=== PATIENT | male | born 1945 | race Caucasian/White ===

== ENCOUNTER 2018-06-23 06:58 | Inpatient (IN) | payer MEDICARE, BC ==
[2018-06-23] VITALS (17 sets, daily range): BP systolic 114–178; BP diastolic 56–80
[~2018-06-23] VITALS: Ht 175.3 cm; Wt 43.9 kg
[~2018-06-23 06:58] MED LIST: ADV50250 INH; ALBU8.5H8 INH; AMLO5TAB4 PO; LACT1CAP26 PO; LEVO500T89 PO; PANT40TA4 PO; PRED10TA23 PO; guaiFENesin/codeine oral syrup PO
[2018-06-23] MEDS ORDERED: normal saline 1000ml 1,000 ML IV ONE (07:25)
[2018-06-23] MEDS ORDERED: normal saline 1000ML IV soln IVB ONE (07:40)
[2018-06-23] MEDS: K, MAG and/or Phos replacement - Verify level? MC SCH (08:00)
[2018-06-23] MEDS ORDERED: thiamine 100mg tablet PO SCH (08:00)
[2018-06-23] MEDS ORDERED: morphine 4 MG/ML inj SYRINge IV PRN (08:00)
[2018-06-23] MEDS ORDERED: folic acid 1mg tablet PO SCH (08:00)
[2018-06-23] MEDS ORDERED: folic acid inj. 2 MG, thiamine inj. 100 MG, MVI, adult No.4 with vit. K 10 ML in dextro... IV SCH ×4 (08:00)
[2018-06-23 08:14] LABS: BASOPHILS % (AUTO) 0.1 % (0-1); EOSINOPHILS % (AUTO) 0 % (0-6); HEMATOCRIT 31.3 % (42.0-52.0); HEMOGLOBIN 10.7 g/dl (14.0-17.9); LYMPHOCYTES # (AUTO) 1.1 X10'3 (1.1-4.8); LYMPHOCYTES % (AUTO) 6.4 % (21-51); MEAN CORPUSCULAR HEMOGLOBIN 32.1 PG (27.0-31.0); MEAN CORPUSCULAR HGB CONC 34.1 % (33.0-36.5); MEAN CORPUSCULAR VOLUME 94.3 FL (78-98); MEAN PLATELET VOLUME 6.8 FL (7.4-10.4); MONOCYTES # (AUTO) 0.8 X10'3 (0-0.9); MONOCYTES % (AUTO) 4.8 % (2-12); NEUTROPHILS # (AUTO) 15.1 X10'3 (1.8-7.7); NEUTROPHILS % (AUTO) 88.7 % (42-75); PLATELET COUNT 607 X10'3 (140-440); RED BLOOD COUNT 3.32 X10'6 (4.70-6.10); RED CELL DISTRIBUTION WIDTH 13.5 % (11.5-14.5)
[2018-06-23 08:16] LABS: PARTIAL THROMBOPLASTIN TIME 27 SECONDS (22-32); PROTHROMBIN TIME 10.8 SECONDS (9.0-12.0)
[2018-06-23 08:31] LABS: ALANINE AMINOTRANSFERASE 22 U/L (12-78); ALBUMIN 1.8 G/DL (3.4-5.0); ALBUMIN/GLOBULIN RATIO 0.6 (1.1-1.5); ALKALINE PHOSPHATASE 259 IU/L (46-116); ANION GAP 6 (8-16); ASPARTATE AMINO TRANSFERASE 16 U/L (10-37); BILIRUBIN,TOTAL 0.4 MG/DL (0.1-1.0); BLOOD UREA NITROGEN 12 MG/DL (7-18); BUN/CREATININE RATIO 12.8 (5.4-32.0); CALCIUM 8.1 MG/DL (8.5-10.1); CHLORIDE 100 MMOL/L (99-107); CREATININE 0.94 MG/DL (0.60-1.10); GLUCOSE 183 MG/DL (70-104); POTASSIUM 3.7 MMOL/L (3.5-5.1); SODIUM 135 MMOL/L (135-145); TOTAL CARBON DIOXIDE 28.6 MMOL/L (24-32); TOTAL PROTEIN 4.7 G/DL (6.4-8.2); eGFR 79 ML/MIN
[2018-06-23] MEDS ORDERED: iohexol 300mg/ml 100ml inj. ONE (09:40)
[2018-06-23] MEDS ORDERED: LIDOcaine 1%/PF 5ML 10 MG/ML VIAL ONE (09:40)
[2018-06-23] MEDS ORDERED: LIDOcaine 1%/PF 5ML 10 MG/ML VIAL SQ ONE (09:45)
[2018-06-23] MEDS ORDERED: midazolam 2 mg/2 ml injection IV PRN (09:45)
[2018-06-23] MEDS ORDERED: fentaNYL/PF 50MCG/1 ML 2ML syringe IV PRN (09:45)
[2018-06-23] MEDS ORDERED: heparin 1,000 UNITS/NS 500ml 500 ML ICATH ONE (09:45)
[2018-06-23] MEDS ORDERED: normal saline 1000ml 1,000 ML IV SCH (09:45)
[2018-06-23] MEDS ORDERED: magnesium 4gm in 100ml NS 100 ML IV PRN (09:50)
[2018-06-23] MEDS ORDERED: magnesium Cl slow-release 64mg tablet PO PRN (09:50)
[2018-06-23] MEDS ORDERED: ondansetron/PF 4mg/2ml inj IV PRN (09:50)
[2018-06-23] MEDS ORDERED: LORazepam 1 MG tablet PO PRN (09:50)
[2018-06-23] MEDS ORDERED: thiamine 100mg/ml 2ml inj. IV ONE (09:50)
[2018-06-23] MEDS ORDERED: sodium phosphate inj. 15 MMOL in dextrose 5%-water 150 ML IV PRN (09:50)
[2018-06-23] MEDS ORDERED: magnesium 1gm/100ml D5W IVPB 100 ML IV PRN (09:50)
[2018-06-23] MEDS ORDERED: Neutra Phos packet PO PRN (09:50)
[2018-06-23] MEDS ORDERED: sodium phosphate inj. 30 MMOL in dextrose 5%-water 250 ML IV PRN (09:50)
[2018-06-23] MEDS ORDERED: acetaminophen 325mg tablet PO PRN ×2 (09:50)
[2018-06-23] MEDS ORDERED: haloperidol 5mg tablet PO PRN (09:50)
[2018-06-23] MEDS ORDERED: dextrose 50%-water 50ml dispensing syringe IV PRN (09:50)
[2018-06-23] MEDS ORDERED: potassium Cl 20 mEq SR tablet PO PRN (09:50)
[2018-06-23] MEDS ORDERED: haloperidol lactate 5mg/ml inj IM PRN (09:50)
[2018-06-23] MEDS ORDERED: fentaNYL/PF 50MCG/1 ML 2ML syringe ONE ×2 (10:04→10:39)
[2018-06-23] MEDS ORDERED: heparin 1,000 UNITS/NS 500ml 500 ML ONE (10:04)
[2018-06-23] MEDS ORDERED: midazolam 2 mg/2 ml injection ONE ×2 (10:04→10:39)
[2018-06-23] MEDS ORDERED: albuterol 2.5 MG/3 ML nebule NEB PRN (10:40)
[2018-06-23] MEDS: normal saline 1000ml 1,000 ML IV SCH ×3 (11:55→23:07)
[2018-06-23] MEDS ORDERED: pneumococcal 23-VAL P-sac vacc 25 mcg/0.5ml vial IMVAC ONE (13:40)
[2018-06-23 13:49] LABS: CLARITY,URINE CLEAR (Clear); COLOR,URINE YELLOW (Yellow); GLUCOSE, URINE NEGATIVE (Neg); KETONES,URINE NEGATIVE (Neg); LEUKOCYTE ESTERASE ,URINE NEGATIVE (Neg); NITRITES, URINE NEGATIVE (Neg); OCCULT BLOOD,URINE NEGATIVE (Neg); PROTEIN,URINE NEGATIVE (Neg)
[2018-06-23 13:56] LABS: UA COLLECTION TYPE VOIDED
[2018-06-23] MEDS: docusate sod 100mg capsule PO SCH (20:00)
[2018-06-23] MEDS: lactobacillus rhamnosus 10,000 MMU CELLS/CAPSULE PO SCH (20:00)
[2018-06-23] MEDS ORDERED: ipratropium/albuterol 3ml nebule NEB PRN (21:25)
[2018-06-23] MEDS: famotidine 20mg tablet PO SCH (21:37)
[2018-06-23] MEDS: HYDROcodone/acetaminophen 10/325mg tab PO PRN (21:44)
[2018-06-24] VITALS (23 sets, daily range): BP systolic 122–180; BP diastolic 56–88
[2018-06-24] MEDS: normal saline 1000ml 1,000 ML IV SCH ×2 (01:15→21:25)
[2018-06-24 03:08] LABS: BASOPHILS # (AUTO) 0.1 X10'3 (0-0.2); BASOPHILS % (AUTO) 0.6 % (0-1); EOSINOPHILS # (AUTO) 0.2 X10'3 (0-0.9); EOSINOPHILS % (AUTO) 1.6 % (0-6); HEMATOCRIT 24.5 % (42.0-52.0); HEMOGLOBIN 8.3 g/dl (14.0-17.9); LYMPHOCYTES # (AUTO) 1.3 X10'3 (1.1-4.8); LYMPHOCYTES % (AUTO) 12.7 % (21-51); MEAN CORPUSCULAR HEMOGLOBIN 31.8 PG (27.0-31.0); MEAN CORPUSCULAR HGB CONC 34.1 % (33.0-36.5); MEAN CORPUSCULAR VOLUME 93.4 FL (78-98); MEAN PLATELET VOLUME 6.6 FL (7.4-10.4); MONOCYTES # (AUTO) 0.8 X10'3 (0-0.9); MONOCYTES % (AUTO) 7.5 % (2-12); NEUTROPHILS # (AUTO) 8.1 X10'3 (1.8-7.7); NEUTROPHILS % (AUTO) 77.6 % (42-75); PLATELET COUNT 471 X10'3 (140-440); RED BLOOD COUNT 2.62 X10'6 (4.70-6.10); RED CELL DISTRIBUTION WIDTH 13.2 % (11.5-14.5); WHITE BLOOD COUNT 10.4 X10'3 (4.5-11.0)
[2018-06-24 03:15] LABS: PARTIAL THROMBOPLASTIN TIME 30 SECONDS (22-32); PROTHROMBIN TIME 10.4 SECONDS (9.0-12.0)
[2018-06-24 03:21] LABS: ALANINE AMINOTRANSFERASE 20 U/L (12-78); ALBUMIN 1.5 G/DL (3.4-5.0); ALBUMIN/GLOBULIN RATIO 0.6 (1.1-1.5); ALKALINE PHOSPHATASE 182 IU/L (46-116); ANION GAP 6 (8-16); ASPARTATE AMINO TRANSFERASE 16 U/L (10-37); BILIRUBIN,TOTAL 0.2 MG/DL (0.1-1.0); BLOOD UREA NITROGEN 12 MG/DL (7-18); BUN/CREATININE RATIO 18.8 (5.4-32.0); CALCIUM 7.5 MG/DL (8.5-10.1); CHLORIDE 101 MMOL/L (99-107); CREATININE 0.64 MG/DL (0.60-1.10); GLUCOSE 103 MG/DL (70-104); MAGNESIUM 1.7 MG/DL (1.5-2.4); PHOSPHORUS 3.5 MG/DL (2.3-4.5); POTASSIUM 3.6 MMOL/L (3.5-5.1); SODIUM 135 MMOL/L (135-145); TOTAL CARBON DIOXIDE 27.8 MMOL/L (24-32); eGFR > 90 ML/MIN
[2018-06-24] MEDS ORDERED: multivitamins, therapeutics tablet PO SCH (08:00)
[2018-06-24] MEDS: K, MAG and/or Phos replacement - Verify level? MC SCH (08:00)
[2018-06-24] MEDS: famotidine 20mg tablet PO SCH (08:02)
[2018-06-24] MEDS: pantoprazole 40mg Tablet.DR PO SCH (08:02)
[2018-06-24] MEDS: docusate sod 100mg capsule PO SCH ×2 (08:02→21:24)
[2018-06-24] MEDS: lactobacillus rhamnosus 10,000 MMU CELLS/CAPSULE PO SCH ×2 (08:02→21:24)
[2018-06-24] MEDS: prednisone 10mg tablet PO SCH (09:24)
[2018-06-24 10:43] LABS: % IRON SATURATION 24 % (11-46); IRON 34 UG/DL (53-167); TOTAL IRON BINDING CAPACITY 140 UG/DL (259-388)
[2018-06-24] MEDS ORDERED: vasopressin inj. 60 UNIT in normal saline 100ml IV soln 97 ML IV SCH (15:00)
[2018-06-25] VITALS (28 sets, daily range): BP systolic 120–221; BP diastolic 30–140
[2018-06-25] MEDS: normal saline 1000ml 1,000 ML IV SCH ×3 (01:47→20:00)
[2018-06-25] MEDS: hydrALAZINE 20mg/ml inj. IV PRN ×3 (02:05→13:02)
[2018-06-25 03:50] LABS: BASOPHILS % (AUTO) 0.2 % (0-1); EOSINOPHILS # (AUTO) 0.2 X10'3 (0-0.9); HEMATOCRIT 27.3 % (42.0-52.0); HEMOGLOBIN 9.3 g/dl (14.0-17.9); LYMPHOCYTES % (AUTO) 7.7 % (21-51); MEAN CORPUSCULAR HEMOGLOBIN 31.6 PG (27.0-31.0); MEAN CORPUSCULAR HGB CONC 33.9 % (33.0-36.5); MEAN CORPUSCULAR VOLUME 93.3 FL (78-98); MEAN PLATELET VOLUME 6.9 FL (7.4-10.4); MONOCYTES # (AUTO) 0.8 X10'3 (0-0.9); MONOCYTES % (AUTO) 6.7 % (2-12); NEUTROPHILS # (AUTO) 10.4 X10'3 (1.8-7.7); NEUTROPHILS % (AUTO) 83.4 % (42-75); PLATELET COUNT 526 X10'3 (140-440); RED BLOOD COUNT 2.93 X10'6 (4.70-6.10); RED CELL DISTRIBUTION WIDTH 13.3 % (11.5-14.5); WHITE BLOOD COUNT 12.4 X10'3 (4.5-11.0)
[2018-06-25 04:03] LABS: PARTIAL THROMBOPLASTIN TIME 26 SECONDS (22-32); PROTHROMBIN TIME 10.1 SECONDS (9.0-12.0)
[2018-06-25 04:15] LABS: ALANINE AMINOTRANSFERASE 19 U/L (12-78); ALBUMIN 1.7 G/DL (3.4-5.0); ALBUMIN/GLOBULIN RATIO 0.6 (1.1-1.5); ALKALINE PHOSPHATASE 195 IU/L (46-116); ANION GAP 7 (8-16); ASPARTATE AMINO TRANSFERASE 17 U/L (10-37); BILIRUBIN,TOTAL 0.3 MG/DL (0.1-1.0); BLOOD UREA NITROGEN 12 MG/DL (7-18); CALCIUM 7.6 MG/DL (8.5-10.1); CHLORIDE 102 MMOL/L (99-107); CREATININE 0.48 MG/DL (0.60-1.10); GLUCOSE 104 MG/DL (70-104); MAGNESIUM 1.7 MG/DL (1.5-2.4); PHOSPHORUS 2.6 MG/DL (2.3-4.5); POTASSIUM 3.7 MMOL/L (3.5-5.1); SODIUM 136 MMOL/L (135-145); TOTAL PROTEIN 4.5 G/DL (6.4-8.2); eGFR > 90 ML/MIN
[2018-06-25] MEDS: pantoprazole 40mg Tablet.DR PO SCH (07:30)
[2018-06-25] MEDS: K, MAG and/or Phos replacement - Verify level? MC SCH (08:00)
[2018-06-25] MEDS: docusate sod 100mg capsule PO SCH ×2 (08:00→20:00)
[2018-06-25] MEDS: folic acid 1mg tablet PO SCH (08:00)
[2018-06-25] MEDS: lactobacillus rhamnosus 10,000 MMU CELLS/CAPSULE PO SCH ×2 (08:00→20:00)
[2018-06-25] MEDS: prednisone 10mg tablet PO SCH (08:00)
[2018-06-25] MEDS: thiamine 100mg tablet PO SCH (08:00)
[2018-06-25] MEDS: multivitamins, therapeutics tablet PO SCH (08:00)
[2018-06-25] MEDS ORDERED: fentaNYL/PF 50MCG/1 ML 2ML syringe ONE (14:22)
[2018-06-25] MEDS ORDERED: MIDAZolam 5mg/5ml vial ONE (14:22)
[2018-06-25] MEDS ORDERED: LIDOcaine Viscous 15ml cup ONE (14:23)
[2018-06-25] MEDS ORDERED: epiNEPHrine 0.1mg/ml 10ml syringe ONE (14:23)
[2018-06-25 14:29] LABS: BASOPHILS % (AUTO) 0.4 % (0-1); EOSINOPHILS % (AUTO) 0 % (0-6); HEMATOCRIT 28.5 % (42.0-52.0); HEMOGLOBIN 9.7 g/dl (14.0-17.9); LYMPHOCYTES # (AUTO) 0.9 X10'3 (1.1-4.8); LYMPHOCYTES % (AUTO) 7.5 % (21-51); MEAN CORPUSCULAR HEMOGLOBIN 31.6 PG (27.0-31.0); MEAN CORPUSCULAR VOLUME 92.8 FL (78-98); MEAN PLATELET VOLUME 6.4 FL (7.4-10.4); MONOCYTES # (AUTO) 0.8 X10'3 (0-0.9); MONOCYTES % (AUTO) 6.8 % (2-12); NEUTROPHILS # (AUTO) 10.6 X10'3 (1.8-7.7); NEUTROPHILS % (AUTO) 85.3 % (42-75); PLATELET COUNT 528 X10'3 (140-440); RED BLOOD COUNT 3.07 X10'6 (4.70-6.10); RED CELL DISTRIBUTION WIDTH 13.2 % (11.5-14.5); WHITE BLOOD COUNT 12.4 X10'3 (4.5-11.0)
[2018-06-25] MEDS: HYDROcodone/acetaminophen 10/325mg tab PO PRN (15:07)
[2018-06-25] MEDS ORDERED: amLODIPine 5mg tablet PO ONE (16:10)
[2018-06-25] MEDS ORDERED: labetalol 20mg/4ml (5mg/ml) syringe IV ONE (16:10)
[2018-06-25] MEDS: morphine 2 MG/ML inj. syringe IV PRN (20:27)
[2018-06-26] VITALS (20 sets, daily range): BP systolic 129–188; BP diastolic 62–92
[2018-06-26] MEDS: morphine 2 MG/ML inj. syringe IV PRN ×2 (01:25→08:59)
[2018-06-26] MEDS: normal saline 1000ml 1,000 ML IV SCH ×2 (04:27→07:40)
[2018-06-26 05:47] LABS: BASOPHILS % (AUTO) 0.3 % (0-1); EOSINOPHILS # (AUTO) 0.1 X10'3 (0-0.9); EOSINOPHILS % (AUTO) 0.6 % (0-6); HEMATOCRIT 26.2 % (42.0-52.0); HEMOGLOBIN 9.3 g/dl (14.0-17.9); LYMPHOCYTES # (AUTO) 1.3 X10'3 (1.1-4.8); LYMPHOCYTES % (AUTO) 9.4 % (21-51); MEAN CORPUSCULAR HEMOGLOBIN 33.3 PG (27.0-31.0); MEAN CORPUSCULAR HGB CONC 35.7 % (33.0-36.5); MEAN CORPUSCULAR VOLUME 93.4 FL (78-98); MONOCYTES # (AUTO) 0.8 X10'3 (0-0.9); MONOCYTES % (AUTO) 5.8 % (2-12); NEUTROPHILS # (AUTO) 11.5 X10'3 (1.8-7.7); NEUTROPHILS % (AUTO) 83.9 % (42-75); PLATELET COUNT 440 X10'3 (140-440); WHITE BLOOD COUNT 13.7 X10'3 (4.5-11.0)
[2018-06-26 05:56] LABS: PARTIAL THROMBOPLASTIN TIME 28 SECONDS (22-32); PROTHROMBIN TIME 10.5 SECONDS (9.0-12.0)
[2018-06-26 05:57] LABS: ALANINE AMINOTRANSFERASE 17 U/L (12-78); ALBUMIN 1.8 G/DL (3.4-5.0); ALBUMIN/GLOBULIN RATIO 0.7 (1.1-1.5); ALKALINE PHOSPHATASE 183 IU/L (46-116); ANION GAP 3 (8-16); ASPARTATE AMINO TRANSFERASE 19 U/L (10-37); BILIRUBIN,TOTAL 0.3 MG/DL (0.1-1.0); BLOOD UREA NITROGEN 10 MG/DL (7-18); BUN/CREATININE RATIO 15.6 (5.4-32.0); CALCIUM 7.8 MG/DL (8.5-10.1); CHLORIDE 102 MMOL/L (99-107); CREATININE 0.64 MG/DL (0.60-1.10); GLUCOSE 94 MG/DL (70-104); MAGNESIUM 1.5 MG/DL (1.5-2.4); PHOSPHORUS 3.3 MG/DL (2.3-4.5); SODIUM 134 MMOL/L (135-145); TOTAL CARBON DIOXIDE 28.9 MMOL/L (24-32); TOTAL PROTEIN 4.5 G/DL (6.4-8.2); eGFR > 90 ML/MIN
[2018-06-26] MEDS: prednisone 10mg tablet PO SCH (07:39)
[2018-06-26] MEDS: multivitamins, therapeutics tablet PO SCH (07:39)
[2018-06-26] MEDS: lactobacillus rhamnosus 10,000 MMU CELLS/CAPSULE PO SCH ×2 (07:39→20:49)
[2018-06-26] MEDS: docusate sod 100mg capsule PO SCH ×2 (07:39→20:49)
[2018-06-26] MEDS: pantoprazole 40mg Tablet.DR PO SCH (07:39)
[2018-06-26] MEDS: amLODIPine 5mg tablet PO SCH (07:39)
[2018-06-26] MEDS: thiamine 100mg tablet PO SCH (07:39)
[2018-06-26] MEDS: folic acid 1mg tablet PO SCH (07:40)
[2018-06-26] MEDS: K, MAG and/or Phos replacement - Verify level? MC SCH (07:59)
[2018-06-26] MEDS: HYDROcodone/acetaminophen 10/325mg tab PO PRN ×3 (08:58→20:52)
[2018-06-26 15:08] LABS: BASOPHILS % (AUTO) 0.1 % (0-1); EOSINOPHILS # (AUTO) 0.1 X10'3 (0-0.9); EOSINOPHILS % (AUTO) 0.8 % (0-6); HEMATOCRIT 28.7 % (42.0-52.0); HEMOGLOBIN 9.8 g/dl (14.0-17.9); LYMPHOCYTES # (AUTO) 0.8 X10'3 (1.1-4.8); LYMPHOCYTES % (AUTO) 4.3 % (21-51); MEAN CORPUSCULAR HEMOGLOBIN 31.7 PG (27.0-31.0); MEAN CORPUSCULAR HGB CONC 34.1 % (33.0-36.5); MEAN PLATELET VOLUME 6.6 FL (7.4-10.4); MONOCYTES # (AUTO) 0.5 X10'3 (0-0.9); MONOCYTES % (AUTO) 2.6 % (2-12); NEUTROPHILS # (AUTO) 16.2 X10'3 (1.8-7.7); NEUTROPHILS % (AUTO) 92.2 % (42-75); PLATELET COUNT 495 X10'3 (140-440); RED BLOOD COUNT 3.09 X10'6 (4.70-6.10); RED CELL DISTRIBUTION WIDTH 13.4 % (11.5-14.5); WHITE BLOOD COUNT 17.5 X10'3 (4.5-11.0)
[2018-06-26] MEDS: labetalol 20mg/4ml (5mg/ml) syringe IV PRN (17:16)
[2018-06-27] MEDS: HYDROcodone/acetaminophen 10/325mg tab PO PRN ×3 (02:27→14:01)
[2018-06-27 03:00] VITALS: BP 163/69
[2018-06-27 05:54] LABS: BASOPHILS % (AUTO) 0.3 % (0-1); EOSINOPHILS # (AUTO) 0.2 X10'3 (0-0.9); EOSINOPHILS % (AUTO) 2.1 % (0-6); HEMATOCRIT 24.1 % (42.0-52.0); HEMOGLOBIN 8.3 g/dl (14.0-17.9); LYMPHOCYTES # (AUTO) 1.2 X10'3 (1.1-4.8); LYMPHOCYTES % (AUTO) 11.3 % (21-51); MEAN CORPUSCULAR HEMOGLOBIN 31.8 PG (27.0-31.0); MEAN CORPUSCULAR HGB CONC 34.6 % (33.0-36.5); MEAN CORPUSCULAR VOLUME 92.1 FL (78-98); MEAN PLATELET VOLUME 6.5 FL (7.4-10.4); MONOCYTES # (AUTO) 0.9 X10'3 (0-0.9); MONOCYTES % (AUTO) 8.3 % (2-12); NEUTROPHILS # (AUTO) 8.1 X10'3 (1.8-7.7); PLATELET COUNT 459 X10'3 (140-440); RED BLOOD COUNT 2.62 X10'6 (4.70-6.10); RED CELL DISTRIBUTION WIDTH 13.3 % (11.5-14.5); WHITE BLOOD COUNT 10.4 X10'3 (4.5-11.0)
[2018-06-27 06:00] VITALS: BP 146/75
[2018-06-27 06:33] LABS: ALANINE AMINOTRANSFERASE 16 U/L (12-78); ALBUMIN 1.6 G/DL (3.4-5.0); ALBUMIN/GLOBULIN RATIO 0.6 (1.1-1.5); ALKALINE PHOSPHATASE 160 IU/L (46-116); ANION GAP 6 (8-16); ASPARTATE AMINO TRANSFERASE 20 U/L (10-37); BILIRUBIN,TOTAL 0.3 MG/DL (0.1-1.0); BLOOD UREA NITROGEN 8 MG/DL (7-18); CALCIUM 7.7 MG/DL (8.5-10.1); CHLORIDE 101 MMOL/L (99-107); CREATININE 0.73 MG/DL (0.60-1.10); GLUCOSE 88 MG/DL (70-104); MAGNESIUM 1.5 MG/DL (1.5-2.4); PHOSPHORUS 3.4 MG/DL (2.3-4.5); POTASSIUM 3.4 MMOL/L (3.5-5.1); SODIUM 135 MMOL/L (135-145); TOTAL CARBON DIOXIDE 28.5 MMOL/L (24-32); TOTAL PROTEIN 4.2 G/DL (6.4-8.2); eGFR > 90 ML/MIN
[2018-06-27] MEDS: docusate sod 100mg capsule PO SCH ×2 (07:33→19:34)
[2018-06-27] MEDS: prednisone 10mg tablet PO SCH (07:34)
[2018-06-27] MEDS: pantoprazole 40mg Tablet.DR PO SCH (07:34)
[2018-06-27] MEDS: multivitamins, therapeutics tablet PO SCH (07:34)
[2018-06-27] MEDS: amLODIPine 5mg tablet PO SCH (07:34)
[2018-06-27] MEDS: folic acid 1mg tablet PO SCH (07:34)
[2018-06-27] MEDS: thiamine 100mg tablet PO SCH (07:35)
[2018-06-27] MEDS: lactobacillus rhamnosus 10,000 MMU CELLS/CAPSULE PO SCH ×2 (07:35→19:34)
[2018-06-27] MEDS: K, MAG and/or Phos replacement - Verify level? MC SCH (07:37)
[2018-06-27] MEDS: potassium Cl 20 mEq SR tablet PO PRN ×3 (07:38→19:34)
[2018-06-27 11:00] VITALS: BP 152/76
[2018-06-27 15:39] LABS: BASOPHILS % (AUTO) 0.1 % (0-1); EOSINOPHILS % (AUTO) 0 % (0-6); HEMATOCRIT 28.2 % (42.0-52.0); HEMOGLOBIN 9.6 g/dl (14.0-17.9); LYMPHOCYTES # (AUTO) 0.6 X10'3 (1.1-4.8); LYMPHOCYTES % (AUTO) 3.4 % (21-51); MEAN CORPUSCULAR HEMOGLOBIN 31.6 PG (27.0-31.0); MEAN CORPUSCULAR HGB CONC 34.2 % (33.0-36.5); MEAN CORPUSCULAR VOLUME 92.4 FL (78-98); MONOCYTES # (AUTO) 0.5 X10'3 (0-0.9); MONOCYTES % (AUTO) 2.9 % (2-12); NEUTROPHILS # (AUTO) 15.6 X10'3 (1.8-7.7); NEUTROPHILS % (AUTO) 93.6 % (42-75); PLATELET COUNT 471 X10'3 (140-440); RED BLOOD COUNT 3.05 X10'6 (4.70-6.10); RED CELL DISTRIBUTION WIDTH 13.1 % (11.5-14.5); WHITE BLOOD COUNT 16.7 X10'3 (4.5-11.0)
[2018-06-27] MEDS: morphine 2 MG/ML inj. syringe IV PRN (17:39)
[2018-06-27 19:00] VITALS: BP 143/62
[2018-06-27 23:00] VITALS: BP 141/90
[2018-06-28 03:00] VITALS: BP 168/79
[2018-06-28 03:39] LABS: BASOPHILS % (AUTO) 0.2 % (0-1); EOSINOPHILS # (AUTO) 0.3 X10'3 (0-0.9); EOSINOPHILS % (AUTO) 2.1 % (0-6); HEMATOCRIT 27.7 % (42.0-52.0); HEMOGLOBIN 9.4 g/dl (14.0-17.9); LYMPHOCYTES # (AUTO) 1.1 X10'3 (1.1-4.8); LYMPHOCYTES % (AUTO) 7.8 % (21-51); MEAN CORPUSCULAR HEMOGLOBIN 31.5 PG (27.0-31.0); MEAN CORPUSCULAR HGB CONC 33.7 % (33.0-36.5); MEAN CORPUSCULAR VOLUME 93.4 FL (78-98); MEAN PLATELET VOLUME 6.3 FL (7.4-10.4); MONOCYTES % (AUTO) 6.8 % (2-12); NEUTROPHILS # (AUTO) 12.3 X10'3 (1.8-7.7); NEUTROPHILS % (AUTO) 83.1 % (42-75); PLATELET COUNT 535 X10'3 (140-440); RED BLOOD COUNT 2.97 X10'6 (4.70-6.10); RED CELL DISTRIBUTION WIDTH 13.1 % (11.5-14.5); WHITE BLOOD COUNT 14.8 X10'3 (4.5-11.0)
[2018-06-28 03:54] LABS: PARTIAL THROMBOPLASTIN TIME 28 SECONDS (22-32); PROTHROMBIN TIME 10.3 SECONDS (9.0-12.0)
[2018-06-28 04:09] LABS: ALANINE AMINOTRANSFERASE 17 U/L (12-78); ALBUMIN 1.8 G/DL (3.4-5.0); ALBUMIN/GLOBULIN RATIO 0.6 (1.1-1.5); ALKALINE PHOSPHATASE 171 IU/L (46-116); ANION GAP 3 (8-16); ASPARTATE AMINO TRANSFERASE 27 U/L (10-37); BILIRUBIN,TOTAL 0.2 MG/DL (0.1-1.0); BLOOD UREA NITROGEN 9 MG/DL (7-18); BUN/CREATININE RATIO 12.7 (5.4-32.0); CALCIUM 7.8 MG/DL (8.5-10.1); CHLORIDE 99 MMOL/L (99-107); CREATININE 0.71 MG/DL (0.60-1.10); GLUCOSE 100 MG/DL (70-104); MAGNESIUM 1.4 MG/DL (1.5-2.4); PHOSPHORUS 2.9 MG/DL (2.3-4.5); POTASSIUM 4.3 MMOL/L (3.5-5.1); SODIUM 132 MMOL/L (135-145); TOTAL CARBON DIOXIDE 29.9 MMOL/L (24-32); TOTAL PROTEIN 4.7 G/DL (6.4-8.2); eGFR > 90 ML/MIN
[2018-06-28 06:00] VITALS: BP 164/82
[2018-06-28] MEDS: K, MAG and/or Phos replacement - Verify level? MC SCH (08:00)
[2018-06-28] MEDS: multivitamins, therapeutics tablet PO SCH (08:05)
[2018-06-28] MEDS: folic acid 1mg tablet PO SCH (08:05)
[2018-06-28] MEDS: docusate sod 100mg capsule PO SCH ×2 (08:06→20:13)
[2018-06-28] MEDS: pantoprazole 40mg Tablet.DR PO SCH (08:06)
[2018-06-28] MEDS: amLODIPine 5mg tablet PO SCH (08:06)
[2018-06-28] MEDS: lactobacillus rhamnosus 10,000 MMU CELLS/CAPSULE PO SCH ×2 (08:06→20:13)
[2018-06-28] MEDS: prednisone 10mg tablet PO SCH (08:06)
[2018-06-28] MEDS: thiamine 100mg tablet PO SCH (08:06)
[2018-06-28] MEDS ORDERED: magnesium 4gm in 100ml NS 100 ML IV PRN (08:10)
[2018-06-28] MEDS: magnesium Cl slow-release 64mg tablet PO PRN ×2 (08:16→17:23)
[2018-06-28] MEDS: HYDROcodone/acetaminophen 10/325mg tab PO PRN ×3 (08:47→20:44)
[2018-06-28 11:00] VITALS: BP 140/72
[2018-06-28] MEDS: Protein Smoothie (high protein) 240ml (8oz) cup PO SCH (12:30)
[2018-06-28] MEDS: magnesium hydroxide 30ml (MOM) UD suspension PO PRN (14:41)
[2018-06-28 14:47] LABS: BASOPHILS % (AUTO) 0.1 % (0-1); EOSINOPHILS # (AUTO) 0.2 X10'3 (0-0.9); EOSINOPHILS % (AUTO) 1.5 % (0-6); HEMATOCRIT 27.6 % (42.0-52.0); HEMOGLOBIN 9.4 g/dl (14.0-17.9); LYMPHOCYTES # (AUTO) 0.6 X10'3 (1.1-4.8); LYMPHOCYTES % (AUTO) 4.1 % (21-51); MEAN CORPUSCULAR HEMOGLOBIN 31.5 PG (27.0-31.0); MEAN CORPUSCULAR HGB CONC 33.9 % (33.0-36.5); MEAN CORPUSCULAR VOLUME 92.8 FL (78-98); MEAN PLATELET VOLUME 6.5 FL (7.4-10.4); MONOCYTES # (AUTO) 0.5 X10'3 (0-0.9); NEUTROPHILS # (AUTO) 14.1 X10'3 (1.8-7.7); NEUTROPHILS % (AUTO) 91.3 % (42-75); PLATELET COUNT 514 X10'3 (140-440); RED BLOOD COUNT 2.97 X10'6 (4.70-6.10); RED CELL DISTRIBUTION WIDTH 13.4 % (11.5-14.5); WHITE BLOOD COUNT 15.4 X10'3 (4.5-11.0)
[2018-06-28 15:00] VITALS: BP 143/74
[2018-06-28 15:07] LABS: TOTAL CELLS COUNTED 100
[2018-06-28 15:08] LABS: HYPOCHROMASIA 1+; PLATELET ESTIMATE INCREASED; POLYCHROMASIA 1+
[2018-06-28 19:00] VITALS: BP 169/76
[2018-06-28 23:00] VITALS: BP 142/61
[2018-06-29] VITALS (8 sets, daily range): BP systolic 130–174; BP diastolic 52–81
[2018-06-29] MEDS: HYDROcodone/acetaminophen 10/325mg tab PO PRN ×5 (00:17→20:06)
[2018-06-29 05:20] LABS: BASOPHILS % (AUTO) 0.3 % (0-1); EOSINOPHILS # (AUTO) 0.2 X10'3 (0-0.9); EOSINOPHILS % (AUTO) 1.2 % (0-6); HEMATOCRIT 28.8 % (42.0-52.0); HEMOGLOBIN 9.7 g/dl (14.0-17.9); LYMPHOCYTES # (AUTO) 1.3 X10'3 (1.1-4.8); LYMPHOCYTES % (AUTO) 9.7 % (21-51); MEAN CORPUSCULAR HEMOGLOBIN 31.5 PG (27.0-31.0); MEAN CORPUSCULAR HGB CONC 33.8 % (33.0-36.5); MEAN CORPUSCULAR VOLUME 93.3 FL (78-98); MEAN PLATELET VOLUME 6.6 FL (7.4-10.4); MONOCYTES % (AUTO) 7.7 % (2-12); NEUTROPHILS # (AUTO) 10.7 X10'3 (1.8-7.7); NEUTROPHILS % (AUTO) 81.1 % (42-75); PLATELET COUNT 581 X10'3 (140-440); RED BLOOD COUNT 3.09 X10'6 (4.70-6.10); WHITE BLOOD COUNT 13.2 X10'3 (4.5-11.0)
[2018-06-29 05:33] LABS: PARTIAL THROMBOPLASTIN TIME 28 SECONDS (22-32)
[2018-06-29 05:38] LABS: ALANINE AMINOTRANSFERASE 17 U/L (12-78); ALBUMIN/GLOBULIN RATIO 0.7 (1.1-1.5); ALKALINE PHOSPHATASE 171 IU/L (46-116); ANION GAP 2 (8-16); ASPARTATE AMINO TRANSFERASE 28 U/L (10-37); BILIRUBIN,TOTAL 0.2 MG/DL (0.1-1.0); BLOOD UREA NITROGEN 11 MG/DL (7-18); BUN/CREATININE RATIO 16.4 (5.4-32.0); CALCIUM 7.9 MG/DL (8.5-10.1); CHLORIDE 97 MMOL/L (99-107); CREATININE 0.67 MG/DL (0.60-1.10); GLUCOSE 94 MG/DL (70-104); MAGNESIUM 1.8 MG/DL (1.5-2.4); PHOSPHORUS 3.3 MG/DL (2.3-4.5); POTASSIUM 4.2 MMOL/L (3.5-5.1); SODIUM 131 MMOL/L (135-145); TOTAL CARBON DIOXIDE 32.3 MMOL/L (24-32); eGFR > 90 ML/MIN
[2018-06-29] MEDS: K, MAG and/or Phos replacement - Verify level? MC SCH (08:00)
[2018-06-29] MEDS: thiamine 100mg tablet PO SCH (09:05)
[2018-06-29] MEDS: docusate sod 100mg capsule PO SCH ×2 (09:06→20:06)
[2018-06-29] MEDS: lactobacillus rhamnosus 10,000 MMU CELLS/CAPSULE PO SCH ×2 (09:06→20:06)
[2018-06-29] MEDS: magnesium hydroxide 30ml (MOM) UD suspension PO PRN (09:07)
[2018-06-29] MEDS: prednisone 10mg tablet PO SCH (09:07)
[2018-06-29] MEDS: amLODIPine 5mg tablet PO SCH (09:07)
[2018-06-29] MEDS: pantoprazole 40mg Tablet.DR PO SCH (09:07)
[2018-06-29] MEDS: multivitamins, therapeutics tablet PO SCH (09:07)
[2018-06-29] MEDS: folic acid 1mg tablet PO SCH (09:07)
[2018-06-29] MEDS: labetalol 20mg/4ml (5mg/ml) syringe IV PRN (11:57)
[2018-06-29] MEDS: Protein Smoothie (high protein) 240ml (8oz) cup PO SCH (12:30)
[2018-06-29 15:46] LABS: BASOPHILS % (AUTO) 0.2 % (0-1); EOSINOPHILS # (AUTO) 0.2 X10'3 (0-0.9); EOSINOPHILS % (AUTO) 1.3 % (0-6); HEMATOCRIT 27.1 % (42.0-52.0); HEMOGLOBIN 9.3 g/dl (14.0-17.9); LYMPHOCYTES # (AUTO) 0.5 X10'3 (1.1-4.8); LYMPHOCYTES % (AUTO) 3.1 % (21-51); MEAN CORPUSCULAR HEMOGLOBIN 31.8 PG (27.0-31.0); MEAN CORPUSCULAR HGB CONC 34.2 % (33.0-36.5); MEAN CORPUSCULAR VOLUME 92.9 FL (78-98); MEAN PLATELET VOLUME 6.7 FL (7.4-10.4); MONOCYTES # (AUTO) 0.6 X10'3 (0-0.9); MONOCYTES % (AUTO) 3.7 % (2-12); NEUTROPHILS # (AUTO) 15.6 X10'3 (1.8-7.7); NEUTROPHILS % (AUTO) 91.7 % (42-75); PLATELET COUNT 566 X10'3 (140-440); RED BLOOD COUNT 2.91 X10'6 (4.70-6.10); RED CELL DISTRIBUTION WIDTH 13.5 % (11.5-14.5)
[2018-06-30] MEDS: HYDROcodone/acetaminophen 10/325mg tab PO PRN ×4 (02:12→20:21)
[2018-06-30 03:00] VITALS: BP 165/76
[2018-06-30 05:32] LABS: BASOPHILS % (AUTO) 0.1 % (0-1); EOSINOPHILS # (AUTO) 0.3 X10'3 (0-0.9); EOSINOPHILS % (AUTO) 1.5 % (0-6); HEMATOCRIT 30.2 % (42.0-52.0); HEMOGLOBIN 10.3 g/dl (14.0-17.9); LYMPHOCYTES # (AUTO) 1.2 X10'3 (1.1-4.8); LYMPHOCYTES % (AUTO) 5.7 % (21-51); MEAN CORPUSCULAR HEMOGLOBIN 31.8 PG (27.0-31.0); MEAN CORPUSCULAR HGB CONC 33.9 % (33.0-36.5); MEAN CORPUSCULAR VOLUME 93.8 FL (78-98); MEAN PLATELET VOLUME 6.8 FL (7.4-10.4); MONOCYTES # (AUTO) 1.3 X10'3 (0-0.9); NEUTROPHILS # (AUTO) 18.5 X10'3 (1.8-7.7); NEUTROPHILS % (AUTO) 86.7 % (42-75); PLATELET COUNT 666 X10'3 (140-440); RED BLOOD COUNT 3.22 X10'6 (4.70-6.10); RED CELL DISTRIBUTION WIDTH 13.2 % (11.5-14.5); WHITE BLOOD COUNT 21.3 X10'3 (4.5-11.0)
[2018-06-30 05:53] LABS: PARTIAL THROMBOPLASTIN TIME 28 SECONDS (22-32)
[2018-06-30 06:00] VITALS: BP 142/75
[2018-06-30 06:20] LABS: ANION GAP 6 (8-16); BLOOD UREA NITROGEN 14 MG/DL (7-18); BUN/CREATININE RATIO 18.2 (5.4-32.0); CALCIUM 8.3 MG/DL (8.5-10.1); CHLORIDE 96 MMOL/L (99-107); CREATININE 0.77 MG/DL (0.60-1.10); GLUCOSE 105 MG/DL (70-104); PHOSPHORUS 3.8 MG/DL (2.3-4.5); POTASSIUM 4.9 MMOL/L (3.5-5.1); SODIUM 133 MMOL/L (135-145); TOTAL CARBON DIOXIDE 30.6 MMOL/L (24-32); eGFR > 90 ML/MIN
[2018-06-30 06:21] LABS: ALANINE AMINOTRANSFERASE 12 U/L (12-78); ALBUMIN 2.1 G/DL (3.4-5.0); ALBUMIN/GLOBULIN RATIO 0.6 (1.1-1.5); ALKALINE PHOSPHATASE 170 IU/L (46-116); ASPARTATE AMINO TRANSFERASE 15 U/L (10-37); BILIRUBIN,TOTAL 0.4 MG/DL (0.1-1.0); MAGNESIUM 2.2 MG/DL (1.5-2.4); TOTAL PROTEIN 5.5 G/DL (6.4-8.2)
[2018-06-30] MEDS: K, MAG and/or Phos replacement - Verify level? MC SCH (08:00)
[2018-06-30] MEDS: thiamine 100mg tablet PO SCH (08:25)
[2018-06-30] MEDS: amLODIPine 5mg tablet PO SCH (08:25)
[2018-06-30] MEDS: multivitamins, therapeutics tablet PO SCH (08:25)
[2018-06-30] MEDS: folic acid 1mg tablet PO SCH (08:25)
[2018-06-30] MEDS: docusate sod 100mg capsule PO SCH ×2 (08:26→20:00)
[2018-06-30] MEDS: pantoprazole 40mg Tablet.DR PO SCH (08:26)
[2018-06-30] MEDS: lactobacillus rhamnosus 10,000 MMU CELLS/CAPSULE PO SCH ×2 (08:26→20:20)
[2018-06-30] MEDS: prednisone 10mg tablet PO SCH (08:26)
[2018-06-30 11:00] VITALS: BP 133/67
[2018-06-30] MEDS: Protein Smoothie (high protein) 240ml (8oz) cup PO SCH (12:30)
[2018-06-30 14:59] LABS: BASOPHILS # (AUTO) 0.1 X10'3 (0-0.2); BASOPHILS % (AUTO) 0.2 % (0-1); EOSINOPHILS # (AUTO) 0.4 X10'3 (0-0.9); EOSINOPHILS % (AUTO) 1.6 % (0-6); HEMATOCRIT 28.1 % (42.0-52.0); HEMOGLOBIN 9.7 g/dl (14.0-17.9); LYMPHOCYTES # (AUTO) 0.7 X10'3 (1.1-4.8); LYMPHOCYTES % (AUTO) 2.9 % (21-51); MEAN CORPUSCULAR HEMOGLOBIN 31.9 PG (27.0-31.0); MEAN CORPUSCULAR HGB CONC 34.5 % (33.0-36.5); MEAN CORPUSCULAR VOLUME 92.6 FL (78-98); MEAN PLATELET VOLUME 6.8 FL (7.4-10.4); MONOCYTES # (AUTO) 1.1 X10'3 (0-0.9); NEUTROPHILS # (AUTO) 20.5 X10'3 (1.8-7.7); NEUTROPHILS % (AUTO) 90.3 % (42-75); PLATELET COUNT 638 X10'3 (140-440); RED BLOOD COUNT 3.03 X10'6 (4.70-6.10); RED CELL DISTRIBUTION WIDTH 13.2 % (11.5-14.5); WHITE BLOOD COUNT 22.7 X10'3 (4.5-11.0)
[2018-06-30 15:00] VITALS: BP 150/77
[2018-06-30 19:00] VITALS: BP 169/77
[2018-06-30 23:00] VITALS: BP 174/77
[2018-07-01] VITALS (8 sets, daily range): BP systolic 152–197; BP diastolic 69–91
[2018-07-01] MEDS: HYDROcodone/acetaminophen 10/325mg tab PO PRN ×4 (01:12→22:34)
[2018-07-01 04:27] LABS: BASOPHILS # (AUTO) 0.1 X10'3 (0-0.2); BASOPHILS % (AUTO) 0.3 % (0-1); EOSINOPHILS # (AUTO) 0.3 X10'3 (0-0.9); EOSINOPHILS % (AUTO) 1.6 % (0-6); HEMATOCRIT 30.8 % (42.0-52.0); HEMOGLOBIN 10.5 g/dl (14.0-17.9); LYMPHOCYTES # (AUTO) 1.2 X10'3 (1.1-4.8); LYMPHOCYTES % (AUTO) 5.9 % (21-51); MEAN CORPUSCULAR HEMOGLOBIN 31.8 PG (27.0-31.0); MEAN CORPUSCULAR HGB CONC 34.2 % (33.0-36.5); MEAN PLATELET VOLUME 6.8 FL (7.4-10.4); MONOCYTES # (AUTO) 1.2 X10'3 (0-0.9); MONOCYTES % (AUTO) 5.6 % (2-12); NEUTROPHILS # (AUTO) 17.7 X10'3 (1.8-7.7); NEUTROPHILS % (AUTO) 86.6 % (42-75); PLATELET COUNT 748 X10'3 (140-440); RED BLOOD COUNT 3.31 X10'6 (4.70-6.10); RED CELL DISTRIBUTION WIDTH 13.6 % (11.5-14.5); WHITE BLOOD COUNT 20.4 X10'3 (4.5-11.0)
[2018-07-01 04:37] LABS: PARTIAL THROMBOPLASTIN TIME 29 SECONDS (22-32)
[2018-07-01 04:59] LABS: ALANINE AMINOTRANSFERASE 19 U/L (12-78); ALBUMIN 2.2 G/DL (3.4-5.0); ALBUMIN/GLOBULIN RATIO 0.6 (1.1-1.5); ALKALINE PHOSPHATASE 170 IU/L (46-116); ANION GAP 7 (8-16); ASPARTATE AMINO TRANSFERASE 28 U/L (10-37); BILIRUBIN,TOTAL 0.3 MG/DL (0.1-1.0); BLOOD UREA NITROGEN 13 MG/DL (7-18); BUN/CREATININE RATIO 17.3 (5.4-32.0); CALCIUM 8.3 MG/DL (8.5-10.1); CHLORIDE 93 MMOL/L (99-107); CREATININE 0.75 MG/DL (0.60-1.10); GLUCOSE 107 MG/DL (70-104); MAGNESIUM 1.8 MG/DL (1.5-2.4); PHOSPHORUS 3.5 MG/DL (2.3-4.5); POTASSIUM 3.8 MMOL/L (3.5-5.1); SODIUM 130 MMOL/L (135-145); TOTAL CARBON DIOXIDE 29.7 MMOL/L (24-32); TOTAL PROTEIN 5.8 G/DL (6.4-8.2); eGFR > 90 ML/MIN
[2018-07-01] MEDS: docusate sod 100mg capsule PO SCH ×2 (07:24→19:59)
[2018-07-01] MEDS: amLODIPine 5mg tablet PO SCH (07:24)
[2018-07-01] MEDS: folic acid 1mg tablet PO SCH (07:24)
[2018-07-01] MEDS: lactobacillus rhamnosus 10,000 MMU CELLS/CAPSULE PO SCH ×2 (07:24→19:59)
[2018-07-01] MEDS: pantoprazole 40mg Tablet.DR PO SCH (07:24)
[2018-07-01] MEDS: prednisone 10mg tablet PO SCH (07:24)
[2018-07-01] MEDS: multivitamins, therapeutics tablet PO SCH (07:24)
[2018-07-01] MEDS: thiamine 100mg tablet PO SCH (07:24)
[2018-07-01] MEDS: K, MAG and/or Phos replacement - Verify level? MC SCH (08:00)
[2018-07-01] MEDS: morphine 2 MG/ML inj. syringe IV PRN ×2 (09:29→19:58)
[2018-07-01] MEDS: Protein Smoothie (high protein) 240ml (8oz) cup PO SCH (12:41)
[2018-07-01 14:23] LABS: BASOPHILS % (AUTO) 0 % (0-1); EOSINOPHILS # (AUTO) 0.3 X10'3 (0-0.9); EOSINOPHILS % (AUTO) 1.4 % (0-6); HEMATOCRIT 29.9 % (42.0-52.0); HEMOGLOBIN 10.2 g/dl (14.0-17.9); LYMPHOCYTES # (AUTO) 0.7 X10'3 (1.1-4.8); LYMPHOCYTES % (AUTO) 2.9 % (21-51); MEAN CORPUSCULAR HEMOGLOBIN 31.8 PG (27.0-31.0); MEAN CORPUSCULAR HGB CONC 34.2 % (33.0-36.5); MEAN CORPUSCULAR VOLUME 93.1 FL (78-98); MEAN PLATELET VOLUME 6.4 FL (7.4-10.4); MONOCYTES # (AUTO) 0.7 X10'3 (0-0.9); MONOCYTES % (AUTO) 3.2 % (2-12); NEUTROPHILS # (AUTO) 20.9 X10'3 (1.8-7.7); NEUTROPHILS % (AUTO) 92.5 % (42-75); PLATELET COUNT 727 X10'3 (140-440); RED BLOOD COUNT 3.22 X10'6 (4.70-6.10); RED CELL DISTRIBUTION WIDTH 13.1 % (11.5-14.5); WHITE BLOOD COUNT 22.6 X10'3 (4.5-11.0)
[2018-07-01] MEDS: labetalol 20mg/4ml (5mg/ml) syringe IV PRN (17:32)
[2018-07-01] MEDS ORDERED: metoprolol tartrate 1mg/ml inj IV PRN (18:15)
[2018-07-01] MEDS ORDERED: CAFFEINE CITRATE 60 MG/3 ML injection vial IV PRN (18:15)
[2018-07-01] MEDS ORDERED: nitroGLYCERIN 0.4mg SUBLingual tab SL PRN (18:15)
[2018-07-01] MEDS ORDERED: regadenoson 0.4mg/5ml syringe IV PRN (18:15)
[2018-07-02] VITALS (18 sets, daily range): BP systolic 114–184; BP diastolic 57–114
[2018-07-02] MEDS: labetalol 20mg/4ml (5mg/ml) syringe IV PRN (01:34)
[2018-07-02] MEDS: HYDROcodone/acetaminophen 10/325mg tab PO PRN ×2 (05:06→12:03)
[2018-07-02 05:58] LABS: PARTIAL THROMBOPLASTIN TIME 30 SECONDS (22-32)
[2018-07-02 06:33] LABS: ANION GAP 7 (8-16); CHLORIDE 93 MMOL/L (99-107); GLUCOSE 117 MG/DL (70-104); POTASSIUM 4.2 MMOL/L (3.5-5.1); SODIUM 130 MMOL/L (135-145); TOTAL CARBON DIOXIDE 30.3 MMOL/L (24-32)
[2018-07-02 06:34] LABS: ALANINE AMINOTRANSFERASE 20 U/L (12-78); ALBUMIN 2.2 G/DL (3.4-5.0); ALBUMIN/GLOBULIN RATIO 0.6 (1.1-1.5); ALKALINE PHOSPHATASE 161 IU/L (46-116); ASPARTATE AMINO TRANSFERASE 32 U/L (10-37); BILIRUBIN,TOTAL 0.3 MG/DL (0.1-1.0); BLOOD UREA NITROGEN 18 MG/DL (7-18); BUN/CREATININE RATIO 25.4 (5.4-32.0); CALCIUM 8.6 MG/DL (8.5-10.1); CREATININE 0.71 MG/DL (0.60-1.10); MAGNESIUM 1.8 MG/DL (1.5-2.4); PHOSPHORUS 3.7 MG/DL (2.3-4.5); TOTAL PROTEIN 5.7 G/DL (6.4-8.2); eGFR > 90 ML/MIN
[2018-07-02 06:36] LABS: HEMATOCRIT 29.3 % (42.0-52.0); HEMOGLOBIN 10.3 g/dl (14.0-17.9); MEAN CORPUSCULAR HEMOGLOBIN 32.9 PG (27.0-31.0); MEAN CORPUSCULAR HGB CONC 35.2 % (33.0-36.5); MEAN CORPUSCULAR VOLUME 93.6 FL (78-98); PLATELET COUNT 733 X10'3 (140-440); RED BLOOD COUNT 3.13 X10'6 (4.70-6.10); RED CELL DISTRIBUTION WIDTH 12.5 % (11.5-14.5); WHITE BLOOD COUNT 23.1 X10'3 (4.5-11.0)
[2018-07-02 06:37] LABS: BASOPHILS % (AUTO) 0.1 % (0-1); EOSINOPHILS % (AUTO) 0.2 % (0-6); LYMPHOCYTES % (AUTO) 4.4 % (21-51); MEAN PLATELET VOLUME 7.3 FL (7.4-10.4); MONOCYTES # (AUTO) 1.6 X10'3 (0-0.9); MONOCYTES % (AUTO) 6.9 % (2-12); NEUTROPHILS # (AUTO) 20.5 X10'3 (1.8-7.7); NEUTROPHILS % (AUTO) 88.4 % (42-75)
[2018-07-02] MEDS: K, MAG and/or Phos replacement - Verify level? MC SCH (08:00)
[2018-07-02] MEDS: amLODIPine 5mg tablet PO SCH (08:00)
[2018-07-02] MEDS: pantoprazole 40mg Tablet.DR PO SCH (08:57)
[2018-07-02] MEDS: lactobacillus rhamnosus 10,000 MMU CELLS/CAPSULE PO SCH ×2 (08:57→20:42)
[2018-07-02] MEDS: multivitamins, therapeutics tablet PO SCH (08:58)
[2018-07-02] MEDS: docusate sod 100mg capsule PO SCH ×2 (08:58→20:43)
[2018-07-02] MEDS: prednisone 10mg tablet PO SCH (08:58)
[2018-07-02] MEDS: thiamine 100mg tablet PO SCH (08:58)
[2018-07-02] MEDS: folic acid 1mg tablet PO SCH (08:58)
[2018-07-02] MEDS ORDERED: CAFFEINE CITRATE 60 MG/3 ML injection vial IV ONE (09:25)
[2018-07-02] MEDS ORDERED: regadenoson 0.4mg/5ml syringe IV ONE (09:25)
[2018-07-02] MEDS: Protein Smoothie (high protein) 240ml (8oz) cup PO SCH (12:30)
[2018-07-02 15:08] LABS: BASOPHILS % (AUTO) 0.1 % (0-1); EOSINOPHILS % (AUTO) 0 % (0-6); HEMATOCRIT 29.7 % (42.0-52.0); HEMOGLOBIN 10.2 g/dl (14.0-17.9); LYMPHOCYTES # (AUTO) 0.5 X10'3 (1.1-4.8); LYMPHOCYTES % (AUTO) 2.3 % (21-51); MEAN CORPUSCULAR HEMOGLOBIN 31.7 PG (27.0-31.0); MEAN CORPUSCULAR HGB CONC 34.3 % (33.0-36.5); MEAN CORPUSCULAR VOLUME 92.5 FL (78-98); MEAN PLATELET VOLUME 6.4 FL (7.4-10.4); MONOCYTES # (AUTO) 0.9 X10'3 (0-0.9); MONOCYTES % (AUTO) 3.8 % (2-12); NEUTROPHILS # (AUTO) 22.4 X10'3 (1.8-7.7); NEUTROPHILS % (AUTO) 93.8 % (42-75); PLATELET COUNT 866 X10'3 (140-440); RED CELL DISTRIBUTION WIDTH 13.4 % (11.5-14.5); WHITE BLOOD COUNT 23.9 X10'3 (4.5-11.0)
[2018-07-02] MEDS ORDERED: CADD PCA waste documentation MC SCH (16:00)
[2018-07-02] MEDS: HYDROmorphone/NS 1 mg/ml CADD 50 ML IV SCH ×5 (17:00→23:00)
[2018-07-03] MEDS: HYDROmorphone/NS 1 mg/ml CADD 50 ML IV SCH ×9 (01:00→17:00)
[2018-07-03 02:00] VITALS: BP 187/90
[2018-07-03] MEDS: labetalol 20mg/4ml (5mg/ml) syringe IV PRN (03:34)
[2018-07-03 05:10] LABS: BASOPHILS % (AUTO) 0 % (0-1); EOSINOPHILS # (AUTO) 0.3 X10'3 (0-0.9); EOSINOPHILS % (AUTO) 1.3 % (0-6); HEMATOCRIT 27.6 % (42.0-52.0); HEMOGLOBIN 9.4 g/dl (14.0-17.9); LYMPHOCYTES # (AUTO) 0.9 X10'3 (1.1-4.8); LYMPHOCYTES % (AUTO) 3.8 % (21-51); MEAN CORPUSCULAR HEMOGLOBIN 31.6 PG (27.0-31.0); MEAN CORPUSCULAR HGB CONC 34.2 % (33.0-36.5); MEAN CORPUSCULAR VOLUME 92.2 FL (78-98); MEAN PLATELET VOLUME 6.4 FL (7.4-10.4); MONOCYTES # (AUTO) 1.9 X10'3 (0-0.9); MONOCYTES % (AUTO) 7.7 % (2-12); NEUTROPHILS # (AUTO) 21.5 X10'3 (1.8-7.7); NEUTROPHILS % (AUTO) 87.2 % (42-75); PLATELET COUNT 693 X10'3 (140-440); RED BLOOD COUNT 2.99 X10'6 (4.70-6.10); RED CELL DISTRIBUTION WIDTH 13.1 % (11.5-14.5); WHITE BLOOD COUNT 24.7 X10'3 (4.5-11.0)
[2018-07-03 05:19] LABS: PARTIAL THROMBOPLASTIN TIME 30 SECONDS (22-32); PROTHROMBIN TIME 10.1 SECONDS (9.0-12.0)
[2018-07-03 05:27] LABS: ALANINE AMINOTRANSFERASE 23 U/L (12-78); ALBUMIN 2.2 G/DL (3.4-5.0); ALBUMIN/GLOBULIN RATIO 0.6 (1.1-1.5); ALKALINE PHOSPHATASE 158 IU/L (46-116); ANION GAP 6 (8-16); ASPARTATE AMINO TRANSFERASE 44 U/L (10-37); BILIRUBIN,TOTAL 0.4 MG/DL (0.1-1.0); BLOOD UREA NITROGEN 23 MG/DL (7-18); BUN/CREATININE RATIO 34.8 (5.4-32.0); CALCIUM 8.5 MG/DL (8.5-10.1); CHLORIDE 92 MMOL/L (99-107); CREATININE 0.66 MG/DL (0.60-1.10); GLUCOSE 124 MG/DL (70-104); MAGNESIUM 1.9 MG/DL (1.5-2.4); PHOSPHORUS 3.5 MG/DL (2.3-4.5); SODIUM 128 MMOL/L (135-145); TOTAL CARBON DIOXIDE 29.9 MMOL/L (24-32); TOTAL PROTEIN 5.7 G/DL (6.4-8.2); eGFR > 90 ML/MIN
[2018-07-03 06:00] VITALS: BP 139/79
[2018-07-03] MEDS: docusate sod 100mg capsule PO SCH (07:47)
[2018-07-03] MEDS: folic acid 1mg tablet PO SCH (07:47)
[2018-07-03] MEDS: pantoprazole 40mg Tablet.DR PO SCH (07:47)
[2018-07-03] MEDS: lactobacillus rhamnosus 10,000 MMU CELLS/CAPSULE PO SCH (07:47)
[2018-07-03] MEDS: thiamine 100mg tablet PO SCH (07:47)
[2018-07-03] MEDS: multivitamins, therapeutics tablet PO SCH (07:47)
[2018-07-03] MEDS: amLODIPine 5mg tablet PO SCH (07:48)
[2018-07-03] MEDS: prednisone 10mg tablet PO SCH (07:48)
[2018-07-03] MEDS: K, MAG and/or Phos replacement - Verify level? MC SCH (07:49)
[2018-07-03 11:00] VITALS: BP 135/84
[2018-07-03] MEDS: Protein Smoothie (high protein) 240ml (8oz) cup PO SCH (12:30)
[2018-07-03 15:00] VITALS: BP 174/84
[2018-07-03 15:48] LABS: BASOPHILS # (AUTO) 0.2 X10'3 (0-0.2); BASOPHILS % (AUTO) 0.8 % (0-1); EOSINOPHILS % (AUTO) 0 % (0-6); HEMATOCRIT 30.9 % (42.0-52.0); HEMOGLOBIN 10.6 g/dl (14.0-17.9); LYMPHOCYTES # (AUTO) 0.9 X10'3 (1.1-4.8); LYMPHOCYTES % (AUTO) 3.5 % (21-51); MEAN CORPUSCULAR HEMOGLOBIN 31.5 PG (27.0-31.0); MEAN CORPUSCULAR HGB CONC 34.3 % (33.0-36.5); MEAN CORPUSCULAR VOLUME 91.9 FL (78-98); MEAN PLATELET VOLUME 6.8 FL (7.4-10.4); MONOCYTES # (AUTO) 1.1 X10'3 (0-0.9); NEUTROPHILS % (AUTO) 91.7 % (42-75); PLATELET COUNT 769 X10'3 (140-440); RED BLOOD COUNT 3.36 X10'6 (4.70-6.10); RED CELL DISTRIBUTION WIDTH 13.6 % (11.5-14.5)
[2018-07-03 16:01] LABS: WHITE BLOOD COUNT 26.2 X10'3 (4.5-11.0)
[2018-07-03 17:42] LABS: PLATELET ESTIMATE INCREASED; TOTAL CELLS COUNTED 100
[2018-07-05 11:24] LABS: VITAMIN D, 25-HYDROXY 23.3 ng/mL (30.0-100.0)
[2018-07-08 11:39] LABS: A/G RATIO 0.9 (0.7-1.7); ALBUMIN 2.8 g/dL (2.9-4.4); BETA GLOBULIN 0.8 g/dL (0.7-1.3); GAMMA GLOBULIN 0.8 g/dL (0.4-1.8); GLOBULIN, TOTAL 3.1 g/dL (2.2-3.9); M-SPIKE 0.1 g/dL (Not Observed); PROTEIN, TOTAL, SERUM 5.9 g/dL (6.0-8.5)
== END 2018-07-03 18:38 | DRG 377 ==
LOC: ER 06:58 → ED HOLD 09:47 → ICU 2S 11:43 → PCU 3S 06-26 16:59
PROC: B41C1ZZ Fluoroscopy of Pelvic Arteries using Low Osmolar Contrast (ICD-10-PCS; 2018-06-23)
PROC: B41G1ZZ Fluoroscopy of Left Lower Extremity Arteries using Low Osmolar Contrast (ICD-10-PCS; 2018-06-23)
PROC: B41F1ZZ Fluoroscopy of Right Lower Extremity Arteries using Low Osmolar Contrast (ICD-10-PCS; 2018-06-23)
PROC: 0DB68ZX Excision of Stomach, Via Natural or Artificial Opening Endoscopic, Diagnostic (ICD-10-PCS; principal; 2018-06-25)
PROC: 4A02XM4 Measurement of Cardiac Total Activity, External Approach (ICD-10-PCS; 2018-07-02)
PROC: 3E033HZ Introduction of Radioactive Substance into Peripheral Vein, Percutaneous Approach (ICD-10-PCS; 2018-07-02)
DX: K29.01 Acute gastritis with bleeding (principal); E43 Unspecified severe protein-calorie malnutrition; Z68.1 Body mass index [BMI] 19.9 or less, adult; F10.10 Alcohol abuse, uncomplicated; J44.9 Chronic obstructive pulmonary disease, unspecified; I70.203 Unspecified atherosclerosis of native arteries of extremities, bilateral legs; D64.9 Anemia, unspecified; F17.210 Nicotine dependence, cigarettes, uncomplicated; D47.3 Essential (hemorrhagic) thrombocythemia; K29.80 Duodenitis without bleeding; F03.90 Unspecified dementia, unspecified severity, without behavioral disturbance, psychotic disturbance, mood disturbance, and anxiety; I10 Essential (primary) hypertension; M21.372 Foot drop, left foot; M48.03 Spinal stenosis, cervicothoracic region; M48.061 Spinal stenosis, lumbar region without neurogenic claudication; M54.9 Dorsalgia, unspecified; Z23 Encounter for immunization; Z87.01 Personal history of pneumonia (recurrent); Z79.899 Other long term (current) drug therapy; Z71.6 Tobacco abuse counseling; Z71.41 Alcohol abuse counseling and surveillance of alcoholic
CPT/HCPCS: 36245; 36415; 43239; 70551; 71045; 72141; 72146; 72148; 75630; 76700; 76937; 78452; 80053; 81003; 82306; 82607; 82746; 82948; 83540; 83550; 83605; 83735; 83930; 84075; 84080; 84100; 84134; 84145; 84155; 84165; 85025; 85610; 85730; 86885; 86900; 86901; 86920; 87040; 87070; 88305; 88342; 90732; 93017; 93308; 93925; 94760; 96361; 96374; 97110; 97116; 97161; 97530; 97760; 99152; 99153; 99291; 99292; A4620; A4649; A6212; A6213; A6219; A6257; A6449; A9500; C1769; C1894; G0500; J0171; J0360; J1170; J1644; J2001; J2250; J2270; J3010; J3411; J3490; J7030; J7060; J7512; Q9967